=== PATIENT | male | born 1960 | race Caucasian/White ===

== ENCOUNTER 2024-06-03 14:23 | Emergency (ER) | payer OTHER, SELFPAY ==
[2024-06-03 14:26] VITALS: BP 160/81
[2024-06-03 14:52] LABS: % Basophils 0.9 % (0-2); % Eosinophils 1.3 % (0-6); % Immature Granulocytes 0.5 % (0-0.5); % Lymphocytes 10.3 % (20.5-51.1); % Monocytes 11.2 % (1.7-9.3); % Neutrophils 75.8 % (42.2-75.2); Absolute Basophils 0.1 10^3/uL (0-0.2); Absolute Eosinophils 0.1 10^3/uL (0-0.7); Absolute Immature Granulocytes 0.1 10^3/uL (0-0.05); Absolute Lymphocytes 1.1 10^3/uL (1.2-3.4); Absolute Monocytes 1.2 10^3/uL (0.1-0.6); Absolute Neutrophils 8.1 10^3/uL (1.4-6.5); Hematocrit 52.6 % (39.0-52.0); Hemoglobin 18.4 g/dL (13.0-18.0); Mean Corpuscular Hgb 28.5 pg (27.0-31.0); Mean Corpuscular Volume 81.6 fL (80.0-94.0); Nucleated Red Blood Cells % 0 % (-); Platelet Count 358 10^3/uL (130-400); Red Blood Cell Count 6.45 10^6/uL (4.70-6.10); Red Cell Dist. Width 13.2 % (11.5-14.5); White Blood Cell Count 10.7 10^3/uL (4.8-10.8)
[2024-06-03 15:21] LABS: ALT (SGPT) 25 U/L (0-50); AST (SGOT) 28 U/L (17-59); Albumin 4.7 g/dl (3.5-5.0); Alkaline Phosphatase 98 U/L (38-126); Blood Urea Nitrogen 49 mg/dl (9-20); Carbon Dioxide 18 mmol/L (22-30); Chloride 96 mmol/L (98-107); Glucose 198 mg/dl (70-99); Potassium 4.8 mmol/L (3.5-5.1); Sodium 134 mmol/L (135-145); Total Bilirubin 0.8 mg/dl (0.2-1.3); Total Protein 7.8 g/dl (6.3-8.2); eGFR 47.82
[2024-06-03 16:42] VITALS: BP 104/85
[2024-06-03 16:48] VITALS: BMI 22.0
[2024-06-03] MEDS: NSS 1000 IV (16:48)
[2024-06-03] MEDS: ZOFRAN 4 MG IV (16:53)
--- NOTE | 2024-06-03 17:33 | ED.GENMED ---
History of Present Illness
General
Chief Complaint: Dehydration Symptoms
Time Seen by Provider: 06/03/24 16:34
History of Present Illness
History of Present Illness:
64-year-old male presents to the emergency department for evaluation of fatigue, states he began with nausea, vomiting, and diarrhea 2 days ago and since that time has had increasing weakness. Having difficulty tolerating p.o. fluids. He
reportedly had a stroke in March treated at an outside hospital, does not routinely follow-up with primary care physicians. Lastly he reports having chronic but worsening right-sided headaches that come and go and sharp episodes, lasting anywhere
from seconds to minutes. States they occur on almost a daily basis. They are not associated with any vision changes, neck pain, or fevers
Review of Systems
Review of Systems
Allergies reviewed?: Yes
All Other Systems: ROS reviewed and negative except as documented in HPI and ROS
Phy Exam
Physical Exam
Physical Exam:
GEN: Well appearing, NAD, WDWN
HEENT: Oral mucosa moist, no scleral icterus
Cardiac: Tachycardic but regular, no murmurs
Lung: No respiratory distress, no tachypnea
Abdomen: Soft, nontender
MSK: No gross deformity or injuries
Skin: Good color, no pallor or jaundice, no rashes
Neuro: AO x3, moves all extremities freely, Cranial nerves II through XII grossly intact
Psych: Calm, cooperative
Course
Orders/Labs/Results
Orders:
Orders
06/03/24 14:30
Electrocardiogram (*1) Urgent
Reason for Study: Fatigue / Weakness
CT Head W/o Iv Contrast Urgent
Comment: hx cva in march 2024 went to [facility]
Reason For Exam: right side of head pain
06/03/24 14:31
EKG- Treatment ONCE
06/03/24 14:38
Complete Blood Count/With Diff Urgent
Comprehensive Metabolic Panel Urgent
06/03/24 16:48
0.9% Sodium Chloride 1000 ml [Nss] 1,000 ml IV BOLUS
06/03/24 16:50
Ondansetron Injectable [Zofran] 4 mg .ROUTE .STK-MED ONE
06/03/24 16:53
Ondansetron Injectable [Zofran] 4 mg IV NOW STA
06/03/24 17:41
0.9% Sodium Chloride 500 ml [Nss] 500 ml IV BOLUS
Carbamazepine [Tegretol] 200 mg PO NOW STA
Abnormal Lab Results
06/03/24
14:38
RBC 6.45 H 10^6/uL
(4.70-6.10)
Hgb 18.4 H g/dL
(13.0-18.0)
Hct 52.6 H %
(39.0-52.0)
Abs Immat Gran (auto) 0.1 H 10^3/uL
(0-0.05)
Absolute Neuts (auto) 8.1 H 10^3/uL
(1.4-6.5)
Absolute Lymphs (auto) 1.1 L 10^3/uL
(1.2-3.4)
Absolute Monos (auto) 1.2 H 10^3/uL
(0.1-0.6)
Neutrophils % 75.8 H %
(42.2-75.2)
Lymphocytes % 10.3 L %
(20.5-51.1)
Monocytes % 11.2 H %
(1.7-9.3)
Sodium 134 L mmol/L
(135-145)
Chloride 96 L mmol/L
(98-107)
Carbon Dioxide 18 L mmol/L
(22-30)
BUN 49 H mg/dl
(9-20)
Creatinine 1.6 H mg/dL
(0.7-1.3)
Glucose 198 H mg/dl
(70-99)
06/03/24 14:38
06/03/24 14:38
Vital Signs
Initial and Last Documented VS:
Initial Vital Signs
Temp Pulse Resp BP Pulse Ox
98.8 F 125 16 160/81 98
06/03/24 14:26 06/03/24 14:26 06/03/24 14:26 06/03/24 14:26 06/03/24 14:26
Last Documented Vital Signs
Temp Pulse Resp BP Pulse Ox
98.8 F 100 16 122/89 97
06/03/24 14:26 06/03/24 18:19 06/03/24 16:42 06/03/24 18:19 06/03/24 18:19
MDM/Problems Addressed
MDM/Problems Addressed:
Patient's nausea and vomiting is likely self-limited viral syndrome, he has no leukocytosis or abdominal tenderness warranting abdominal imaging at this time. Labs are notable for elevated hemoglobin although baseline is unknown, as well as
suspected ISRRAEL again with no known baseline. This is likely prerenal in the basis of volume loss due to GI illness. Patient's symptoms resolved after treatment with IV fluids. In regards to his headaches head CT was obtained due to the recent CVA
however this was unremarkable. His description of the pain pattern is compatible with trigeminal neuralgia as such we will start him on carbamazepine
*Critical Care Note
Total Time (30-74mins, 75-104mins- exclusive of procedures): Not Applicable
ED Attending Note
-
Portions of this chart may have been created with voice recognition software.� Occasional wrong word or��sound alike� substitutions may have occurred due to the inherent limitations of voice recognition software.
Discharge Plan
Departure
Patient Disposition: Home (Routine Discharge)
Date of Disposition: 06/03/24
Time of Disposition: 18:55
Patient with high blood pressure during this ER visit?: No
Discharge Problem:
Trigeminal neuralgia, Nausea and vomiting
Instructions: Trigeminal neuralgia, Nausea and Vomiting, Adult (DC)
Prescriptions:
New
carbamazepine 200 mg tablet
200 mg PO TID Qty: 60 0RF
ondansetron HCl 4 mg tablet
4 mg PO Q8H PRN (Reason: nausea and vomiting) Qty: 10 0RF
Referrals:
NONE,* [Family Provider] -
Activity Restrictions/Additional Instructions:
[facility]
[address]
[place] [address]
[phone]
Interventions
Interventions:
*Risk Screen - Suicide Last Done: 06/03/24 16:42
*General Assessment Last Done: 06/03/24 16:42
*Neglect/Abuse Screening Last Done: 06/03/24 16:42
ED- Fall Risk Assessment Last Done: 06/03/24 16:42
*ED COVID-19 Vaccine History Last Done: 06/03/24 16:42
*Nursing Disposition Last Done: 06/03/24 19:08
ED- Cardiac Assessment Last Done: 06/03/24 16:42
ED- Neurological Assessment Last Done: 06/03/24 16:42
ED- Pulmonary Assessment Last Done: 06/03/24 16:42
Discharge Date and Time
Discharge Date/Time: 06/03/24 19:08
Print Language: GREEK
[2024-06-03] MEDS: TEGRETOL 200 MG PO (18:15)
[2024-06-03] MEDS: NSS 500 IV (18:16)
[2024-06-03 18:19] VITALS: BP 122/89
== END 2024-06-03 19:08 | disposition home or self-care (01) ==
LOC: EMR 14:23
PROVIDERS: Emergency Medicine; EMERGENCY PHYSICIAN Emergency Medicine
DX: R11.2 Nausea with vomiting, unspecified (principal); G50.0 Trigeminal neuralgia; R51.9 Headache, unspecified; R19.7 Diarrhea, unspecified; Z86.73 Personal history of transient ischemic attack (TIA), and cerebral infarction without residual deficits
CPT/HCPCS: 99284; 96374; 96361; 70450; 80053; 85025; 93005

== ENCOUNTER 2024-06-16 21:05 | Inpatient (IN) | payer OTHER, SELFPAY ==
[2024-06-16] VITALS (10 sets, daily range): BP systolic 93–130; BP diastolic 64–103; BMI 22.1; BMI 21.1
[2024-06-16 14:05] LABS: ALT (SGPT) 43 U/L (0-50); AST (SGOT) 35 U/L (17-59); Albumin 4.2 g/dl (3.5-5.0); Alkaline Phosphatase 119 U/L (38-126); Blood Urea Nitrogen 36 mg/dl (9-20); Calcium 9.6 mg/dl (8.4-10.2); Carbon Dioxide 24 mmol/L (22-30); Chloride 100 mmol/L (98-107); Glucose 194 mg/dl (70-99); Lipase 84 U/L (23-300); Potassium 4.4 mmol/L (3.5-5.1); Sodium 138 mmol/L (135-145); Total Bilirubin 0.6 mg/dl (0.2-1.3); eGFR > 60.00
[2024-06-16 14:28] LABS: % Basophils 0.4 % (0-2); % Eosinophils 0.3 % (0-6); % Immature Granulocytes 0.7 % (0-0.5); % Lymphocytes 4.2 % (20.5-51.1); % Monocytes 5.4 % (1.7-9.3); Absolute Basophils 0.1 10^3/uL (0-0.2); Absolute Eosinophils 0.1 10^3/uL (0-0.7); Absolute Immature Granulocytes 0.3 10^3/uL (0-0.05); Absolute Lymphocytes 1.5 10^3/uL (1.2-3.4); Absolute Monocytes 1.9 10^3/uL (0.1-0.6); Absolute Neutrophils 30.4 10^3/uL (1.4-6.5); Hemoglobin 15.2 g/dL (13.0-18.0); Mean Corp Hgb Conc. 34.5 g/dL (33.0-37.0); Mean Corpuscular Hgb 28.3 pg (27.0-31.0); Mean Corpuscular Volume 81.9 fL (80.0-94.0); Mean Platelet Volume 8.9 fL (7.4-10.4); Nucleated Red Blood Cells % 0 % (-); Platelet Count 330 10^3/uL (130-400); Red Blood Cell Count 5.37 10^6/uL (4.70-6.10); Red Cell Dist. Width 13.2 % (11.5-14.5); White Blood Cell Count 34.2 10^3/uL (4.8-10.8)
[2024-06-16] MEDS: NSS 1000 IV ×2 (14:29→20:59)
[2024-06-16] MEDS: TORADOL 15 MG IV (14:29)
[2024-06-16] MEDS: ZOFRAN 4 MG IV (14:29)
--- NOTE | 2024-06-16 14:58 | ED.GENMED ---
History of Present Illness
General
Chief Complaint: Abdominal Symptoms
Time Seen by Provider: 06/16/24 14:08
History of Present Illness
History of Present Illness:
64-year-old male with history of ulcerative colitis status post colectomy with a pouch presenting to the emergency department for diffuse abdominal pain. Patient reports symptoms since yesterday with associated vomiting, reports green/yellow in
color. Denies any blood in the vomit. Reports diarrhea, which she notes is chronic. Denies fever. Denies chest pain or difficulty breathing. Denies additional surgical history. Denies additional acute medical complaints
Phy Exam
Physical Exam
Physical Exam:
General: Well-appearing, no clinical signs of dehydration, nontoxic and in no acute distress
HEENT: protecting airway
Neck: appears supple
CV: Normal heart rate, regular rhythm, no evidence of cyanosis
Resp: No accessory muscle use, no increased work of breathing
Abd: Mild distention with generalized tenderness to lower abdomen
Extremities: No deformities, no swelling, no erythema
Neuro: alert, no focal neurologic deficit
: deferred
Rectal: deferred
Psych: Normal affect
Skin: Intact
Course
Orders/Labs/Results
Orders:
Orders
06/16/24 Lunch
Clear Liquid
At Your Request: Full Participation
06/16/24 13:35
IV Insert/Care/Rem.- Treatment PRN
06/16/24 13:36
Complete Blood Count/With Diff Urgent
Comprehensive Metabolic Panel Urgent
Lipase Urgent
06/16/24 14:14
Add On- LAB Urgent
Tests Added?: lipase
0.9% Sodium Chloride 1000 ml [Nss] 1,000 ml IV BOLUS
Ketorolac [Toradol] 15 mg IV NOW STA
06/16/24 14:15
CT Abd/pelvis W Iv Cont Urgent
Comment:
Reason For Exam: lower abdominal pain, hx colectomy
06/16/24 14:25
Ondansetron Injectable [Zofran] 4 mg .ROUTE .STK-MED ONE
06/16/24 14:28
Ondansetron Injectable [Zofran] 4 mg IV NOW STA
06/16/24 14:44
Lactic Acid Q4H
Comment: CANCEL 2nd LACTIC ACID IF 1st LACTIC ACID IS LESS THAN 2
Blood Culture Urgent
MELODY Source: Blood/Venous
Specimen Description:
06/16/24 17:25
Urinalysis Reflex To Culture Urgent
Date Specimen was Collected: 06/16/24
Time Specimen was Collected: 17:15
Urine Microscopic Reflex Cult Urgent
06/16/24 18:58
CDIFF [C difficile Antigen & Toxins] Urgent
MELODY Source: Feces/Stool
Specimen Description:
Date Specimen was Collected: 06/16/24
Time Specimen was Collected: 18:56
Stool Culture Urgent
MELODY Source: Feces/Stool
Specimen Description:
Date Specimen was Collected: 06/16/24
Time Specimen was Collected: 18:56
06/16/24 20:00
LevoFLOXacin 500 MG/100 ML [Levaquin] 500 mg in 100 ml IV Q24H
06/16/24 20:06
Records Request [Obtain Records] As Directed
Dates of Information to be Released: [facility] March 2024 Stroke
Type of Information Requested: Entire Record
06/16/24 20:15
0.9% Sodium Chloride 1000 ml [Nss] 1,000 ml IV 100 mls/hr
06/16/24 20:18
Admit/Transfer Patient As Directed
Co-Sign Provider:
Level of Care: Inpatient admission
Assign to:: Medical/Surgical
Physician / Group: Anca Gaona
Diagnosis: Possible Severe Gastroenteritis High White Count
Reason for Hospitalization: Possible Severe Gastroenteritis High White Count hx UC s/p J-pouch Colectomy
Expected length of stay greater than two midnights?: Yes
ELOS- Estimated Length of Stay in days: 2
I certify the patient meets the requirements for IP care: Yes
PRN Pain Medication Management As Directed
May give lesser potent ordered pain med per pt: Yes
preference::
Protocol:: Medication orders for pain may be administered in a
manner that supports deferring to patient preference
when the pt is:
- Requesting an ordered lesser potent pain medication.
Least to most potent pain medications are defined
as: acetaminophen < NSAID < tramadol < opioids
(morphine, oxycodone, hydromorphone).
- Requesting a lesser dose of the same medication IF
ORDERED.
- Requesting a less intrusive route of administration
if both routes are prescribed by the provider (PO <
IV).
06/16/24 20:22
Code Status As Directed
Resuscitation Status: Full Code
06/16/24 20:36
Blood Culture Routine
MELODY Source: Blood/Venous
Specimen Description:
06/16/24 21:00
Flush (0.9% Sodium Chloride) [Flush (Nss)] See Dose Instructions IV PER PROTOCOL
06/16/24 21:36
Acetaminophen [Tylenol] 650 mg PO Q4HPRN PRN
Bisacodyl [Dulcolax] 10 mg RECTAL [id number] PRN
Docusate W/Senna [Senokot-S] 1 tablet PO BIDPRN PRN
Morphine Sulfate 2 mg IV Q4HPRN PRN
Polyethylene Glycol Powder [Miralax] 17 grams PO DAILYPRN PRN
Prochlorperazine [Compazine] 10 mg IV Q6HPRN PRN
06/16/24 21:36
Activity As Directed
Activity Level: With Assistance
Pneumatic Compression Sleeves As Directed
Type: Knee high
Precautions As Directed
Type of Precautions: Other
Comment: Fall precautions
Vital Signs As Directed
Frequency: Per unit guidelines
DX Deep Vein Thrombosis Video Routine
06/16/24 22:00
MetroNIDAZOLE 500 MG/100 ML [Flagyl 500 mg] 100 ml IV Q8H
06/17/24 05:53
Basic Metabolic Panel IN AM
Complete Blood Count/No Diff IN AM
Magnesium IN AM
06/17/24 08:00
Amlodipine [Norvasc] 5 mg PO DAILY
Aspirin Low Dose EC [Aspir Low (Enteric Coated)] 162 mg PO DAILY
Atorvastatin [Lipitor] 40 mg PO DAILY
06/17/24 18:00
Clopidogrel Bisulfate [Plavix] 75 mg PO QPM
06/18/24 06:00
Basic Metabolic Panel IN AM
Complete Blood Count/No Diff IN AM
Magnesium IN AM
06/19/24 06:00
Basic Metabolic Panel IN AM
Complete Blood Count/No Diff IN AM
Magnesium IN AM
06/20/24 06:00
Basic Metabolic Panel IN AM
Complete Blood Count/No Diff IN AM
Magnesium IN AM
06/21/24 06:00
Basic Metabolic Panel IN AM
Complete Blood Count/No Diff IN AM
Magnesium IN AM
06/22/24 06:00
Basic Metabolic Panel IN AM
Complete Blood Count/No Diff IN AM
Magnesium IN AM
06/23/24 06:00
Basic Metabolic Panel IN AM
Complete Blood Count/No Diff IN AM
Magnesium IN AM
Abnormal Lab Results
06/16/24 06/16/24
13:36 17:25
WBC 34.2 H 10^3/uL
(4.8-10.8)
Abs Immat Gran (auto) 0.3 H 10^3/uL
(0-0.05)
Absolute Neuts (auto) 30.4 H 10^3/uL
(1.4-6.5)
Absolute Monos (auto) 1.9 H 10^3/uL
(0.1-0.6)
Immature Gran % 0.7 H %
(0-0.5)
Neutrophils % 89.0 H %
(42.2-75.2)
Lymphocytes % 4.2 L %
(20.5-51.1)
BUN 36 H mg/dl
(9-20)
Glucose 194 H mg/dl
(70-99)
Ur Occult Blood Reflex 4+ A
(Negative)
Urine Bilirubin 1+ A
(Negative)
Leukocyte Esterase Rfl Trace A
(Negative)
Urine RBC 30-40 A /HPF
(0-2)
Urine Albumin (Reflex) 1+ A
(Neg - Trace)
06/16/24 13:36
06/16/24 13:36
Vital Signs
Initial and Last Documented VS:
Initial Vital Signs
Temp Pulse Resp BP Pulse Ox
97.9 F 117 18 107/73 97
06/16/24 12:36 06/16/24 12:36 06/16/24 12:36 06/16/24 12:36 06/16/24 12:36
Last Documented Vital Signs
Temp Pulse Resp BP Pulse Ox
97.8 F 72 17 124/65 97
06/17/24 07:47 06/17/24 08:22 06/17/24 07:47 06/17/24 08:22 06/17/24 09:13
MDM/Problems Addressed
MDM/Problems Addressed:
64-year-old male with history of ulcerative colitis status post colectomy presenting for lower abdominal pain with vomiting. Vital signs are significant for tachycardia.
On exam patient is nontoxic, however slightly uncomfortable secondary to pain with diffuse tenderness to the lower abdomen, slight distention. Concern for possible intra-abdominal pathology/process, particularly given patient surgical history.
Differential considerations include colitis versus obstruction versus urinary tract infection. Will plan for laboratory analysis and CT abdominal imaging. Toradol and Zofran administered for patient's symptoms as well as IV fluids.
14:40 - Patient with markedly elevated white blood cell count. For this reason we will add lactic acid and culture
15:50 -patient pending CT scan with disposition pending CT
*Critical Care Note
Total Time (30-74mins, 75-104mins- exclusive of procedures): Not Applicable
ED Attending Note
-
Portions of this chart may have been created with voice recognition software.� Occasional wrong word or��sound alike� substitutions may have occurred due to the inherent limitations of voice recognition software.
Discharge Plan
Departure
Patient Disposition: Admit
Date of Disposition: 06/16/24
Time of Disposition: 18:15
Presentation/result/management discussed w/ accepting MD/DO: Hospitalist
Discharge Problem:
Bowel obstruction
Interventions
Interventions:
*Risk Screen - Suicide Last Done: 06/16/24 22:29
*Neglect/Abuse Screening Last Done: 06/16/24 19:09
*ED COVID-19 Vaccine History Last Done: 06/16/24 15:41
*Nursing Disposition Last Done: 06/16/24 21:39
WR-Wysueu-Chidxdbtsq Assessment Last Done: 06/16/24 15:41
Discharge Date and Time
Discharge Date/Time: 06/16/24 21:40
[2024-06-16 15:07] LABS: Lactic Acid 1.6 mmol/L (0.7-2.0)
[2024-06-16 17:31] LABS: Urine Albumin 1+ (Neg - Trace); Urine Bilirubin 1+ (Negative); Urine Character Very Cloudy (Clear); Urine Color Amber; Urine Glucose Negative (Negative); Urine Ketone Negative (Negative); Urine Leukocyte Trace (Negative); Urine Nitrite Negative (Negative); Urine Occult Blood 4+ (Negative); Urine Urobilinogen Negative (Neg - 1+)
[2024-06-16 17:40] LABS: Urine Uric Acid Crystals Present
[2024-06-16 17:41] LABS: Urine Hyaline Cast 0-2 /LPF (0-2); Urine White Cell 0-2 /HPF (0-5)
[2024-06-16 17:42] LABS: Urine Mucus Many
[2024-06-16 17:43] LABS: Urine Red Blood Cell 30-40 /HPF (0-2)
--- NOTE | 2024-06-16 18:27 | HPS.HSE ---
Family Physician
-
Family Physician: * NONE
Chief Complaint
-
Abd pain
History of Present Illness
64M UC s/p colectomy J-pouch done at [place] w/ Dr Fleming 2008 hx CVA March 2024 treated at [facility] (stroked '3 times' in March per patient, denies residual symptoms) here with diffuse abd pain 24 hours with associate persistent nausea vomiting
increased stool frequency and abd cramping. Symptoms subsequently improved toradol, zofran and IVF. CT reported concerns for possible developing SBO (doesn't seem to correlate clinically with frequent diarrhea J-pouch output) White count elevation
34.2 afebrile non-toxic appearing no lactic acidosis hemodynamically stable, received 1Liter bolus in ED. Abd tenderness persists but patient otherwise eager to resume eating.
Patient was evaluated here 2 wks ago for nausea/vomiting but no abd tenderness or white count at that time. Patient had associate right sided headache at the time and was diagnosed with trigeminal neuralgia. Discharged with Carbamazepine. Unclear
if still taking. Patient is not currently following a primary care provider.
Medical History
Past Medical History
Past Medical History: Reports Other (as above)
Past Surgical History: Reports Other (as above)
Social History
Tobacco: Non-smoker
Alcohol: None
Drug: Former User
Family History
Family History: Not pertinent (reviewed)
Allergies / Home Medications
Allergies reflects when Allergies were last updated in [employer].
Home Medications with original date entered in [employer]
Allergy/Medication List:
Allergies
Allergy/AdvReac Type Severity Reaction Status Date / Time
No Known Allergies Allergy Verified 06/16/24 12:36
Home Medications
amlodipine 5 mg tablet (Norvasc) 5 mg PO DAILY 06/16/24
aspirin 81 mg tablet,delayed release 162 mg PO DAILY 06/16/24
atorvastatin 40 mg tablet (Lipitor) 40 mg PO DAILY 06/16/24
clopidogrel 75 mg tablet (Plavix) 75 mg PO QPM 06/16/24
ibuprofen 200 mg tablet (Advil) 400 mg PO Q6HPRN PRN mild pain 06/16/24
Review of Systems
-
History Source: Other
A 12 point ROS was completed and negative except as noted: Yes
Constitutional: Reports Other (as below)
Physical Exam
Vital Signs
Vital Signs
Temp Pulse Resp BP Pulse Ox
97.9 F 98 19 122/77 98
06/16/24 12:36 06/16/24 15:45 06/16/24 15:45 06/16/24 15:30 06/16/24 15:45
Physical Exam
General: Other (as below)
Laboratory Results
-
06/16/24 13:36
06/16/24 13:36
Laboratory Results
Lactic Acid 1.6 mmol/L (0.7-2.0) 06/16/24 14:44
Total Bilirubin 0.6 mg/dl (0.2-1.3) 06/16/24 13:36
AST 35 U/L (17-59) 06/16/24 13:36
ALT 43 U/L (0-50) 06/16/24 13:36
Alkaline Phosphatase 119 U/L (38-126) 06/16/24 13:36
Lipase 84 U/L (23-300) 06/16/24 13:36
Impression/Plan
-
ROS
General: Denies fever chills night sweats unexpected weight loss
Neuro: Denies seizure shaking loss of consciousness dizziness vertigo
Psych: denies depression hallucinations confusion manic episodes
Endocrine: Denies polyuria polydipsia polyphagia heat/cold intolerance
HEENT: Denies blindness visual disturbances epistaxis
Pulmonary: denies coughing hemoptysis sneezing sob dyspnea on exertion
Cardiovascular: denies chest pain palpitations leg swelling
Hematology: denies signs symptoms of anemia easy bruising/bleeding
Gastrointestinal: reports nausea vomiting diarrhea (increased J-pouch output frequency) denies hematemesis hematochezia melena
Genito-Urinary: denies retention incontinence dysuria
Musculoskeletal: denies joint pain weakness
Dermatology: denies rash laceration bruising
Physical Exam
General: No pallor, cyanosis, or jaundice.
HEENT: Throat clear. PERRLA Normocephalic atraumatic
NECK: Supple. No JVD Carotid Bruits
RESPIRATORY: Lungs clear to auscultation. No crackles wheezes stridor
CVS: S1, S2 normal. RRR. No murmur, rub or gallop.
ABDOMEN: Soft, tender, bowel sounds present
EXTREMITIES: No peripheral cyanosis or edema.
MANAGER MEDICAID: [id number]. No focal deficits.
IMPRESSION:
64M UC s/p colectomy J-pouch done at [place] w/ Dr Fleming 2008 hx CVA March 2024 treated at [facility] (stroked '3 times' in March per patient, denies residual symptoms) here with diffuse abd pain 24 hours with associate persistent nausea vomiting
increased stool frequency and abd cramping. Symptoms subsequently improved toradol, zofran and IVF. CT reported concerns for possible developing SBO (doesn't seem to correlate clinically with frequent diarrhea J-pouch output) White count elevation
34.2 afebrile non-toxic appearing no lactic acidosis hemodynamically stable, received 1Liter bolus in ED. Abd tenderness persists but patient otherwise eager to resume eating.
Patient was evaluated here 2 wks ago for nausea/vomiting but no abd tenderness or white count at that time. Patient had associate right sided headache at the time and was diagnosed with trigeminal neuralgia. Discharged with Carbamazepine. Unclear
if still taking. Patient is not currently following a primary care provider.
PLAN:
#Abd pain tenderness nausea vomiting Leukocytosis 30s frequent J pouch outputs (patient doesn't consider these to be bowel movements) unclear etiology
#CT suggest early signs SBO but unlikely given issue is frequent output
#Possible gastroenteritis, question possible pouchitis not noted on CT
#UC s/p colectomy J-pouch done at [place] w/ Dr Fleming 2008
med surg admit
CRS and GI consults requested
IVF
trial clear liquid diet for now, switch to NPO if Nausea vomiting re-occurs
empiric abx Levofloxacin Flagyll
Blood Cultures
Stool Cultures
check Cdiff
trend WBC
Tylenol PRN
aniemetic prn Compazine, minimize QT prolonging agents while on Levofloxacin
morphine prn pain
#hx CVA March 2024 treated at [facility]
Records requested
cont home ASA 162 mg and Plavix
avoid excessive NSAID/antiplatelet use (home ibuprofen prn placed on hold)
#Question Trigeminal Neuralgia
currently appears symptom free, unclear if patient has been taking
hold off on restarting carbamazepine and monitor for now.
dvt ppx SCD
Full Code
I spent a total of 80 minutes with the patient or on the floor. More than 50% of this time involved counseling and coordination of care.
[2024-06-16] MEDS: LEVAQUIN 100 IV (21:00)
[2024-06-16] MEDS: FLAGYL 500 MG 100 IV (22:31)
[2024-06-17] MEDS: FLAGYL 500 MG 100 IV (05:29)
[2024-06-17 06:13] LABS: Hematocrit 37.3 % (39.0-52.0); Hemoglobin 12.5 g/dL (13.0-18.0); Mean Corp Hgb Conc. 33.5 g/dL (33.0-37.0); Mean Corpuscular Hgb 28.3 pg (27.0-31.0); Mean Corpuscular Volume 84.4 fL (80.0-94.0); Mean Platelet Volume 9.2 fL (7.4-10.4); Platelet Count 272 10^3/uL (130-400); Red Blood Cell Count 4.42 10^6/uL (4.70-6.10); Red Cell Dist. Width 13.3 % (11.5-14.5)
[2024-06-17 06:42] LABS: Blood Urea Nitrogen 38 mg/dl (9-20); Carbon Dioxide 28 mmol/L (22-30); Chloride 101 mmol/L (98-107); Estimated Creatinine Clearance 79 ml/min; Glucose 146 mg/dl (70-99); Potassium 5.2 mmol/L (3.5-5.1); Sodium 137 mmol/L (135-145); eGFR > 60.00
[2024-06-17 07:47] VITALS: BP 124/65
[2024-06-17] MEDS: NORVASC 5 MG PO (08:22)
[2024-06-17] MEDS: LIPITOR 40 MG PO (08:22)
[2024-06-17] MEDS: ASPIR LOW (ENTERIC COATED) 162 MG PO (08:23)
--- NOTE | 2024-06-17 09:11 | W.PN.HOSP.TC ---
Today's Communication/Plan
-
Advance diet. Plan to discharge today.
Assessment / Plan
Assessment / Plan
Physical exam:
General: Well Developed, Well Nourished and No Apparent Distress
HEENT: Normocephalic, Atraumatic and Moist Mucous Membranes
Respiratory: Clear to Auscultation; Negative Wheezes, Rales or Rhonchi
Cardiac: Regular Rhythm and S1/S2
GI: Soft, Nontender and Nondistended
Musculoskeletal: No Clubbing, No Cyanosis and No Edema
Neuro: Awake, Alert and Oriented
Psych: Calm
A/P:
#Abd pain tenderness nausea vomiting Leukocytosis 30s frequent J pouch outputs (patient doesn't consider these to be bowel movements) unclear etiology
#CT suggest early signs SBO but unlikely given issue is frequent output
#Possible gastroenteritis, question possible pouchitis not noted on CT
#UC s/p colectomy J-pouch done at [place] w/ Dr Fleming 2008
med surg admitted
C. difficile negative
CRS and GI consults requested--> I put both consults on today. I evaluated the patient and agreed to advance diet and discharge home today with antibiotics and close follow-up as outpatient.
Prior to today:
IVF
trial clear liquid diet for now, switch to NPO if Nausea vomiting re-occurs
empiric abx Levofloxacin Flagyll
Blood Cultures
Stool Cultures
check Cdiff
trend WBC
Tylenol PRN
aniemetic prn Compazine, minimize QT prolonging agents while on Levofloxacin
morphine prn pain
#hx CVA March 2024 treated at [place]
Records requested
cont home ASA 162 mg and Plavix
avoid excessive NSAID/antiplatelet use (home ibuprofen prn placed on hold)
#Question Trigeminal Neuralgia
currently appears symptom free, unclear if patient has been taking
hold off on restarting carbamazepine and monitor for now.
dvt ppx SCD
Full Code
Anticipated Discharge: Today
Subjective/Interval History
-
Date of Service: June 17, 2024
Patient denies abdominal pain nausea vomiting today.
Objective Data
-
Labs:
Laboratory Results
06/17/24
05:53
WBC 9.0
Hgb 12.5 L
Hct 37.3 L
Plt Count 272
Sodium 137
Potassium 5.2 H
Chloride 101
Carbon Dioxide 28
BUN 38 H
Creatinine 1.1
Glucose 146 H
Calcium 9.0
Vital Signs:
Vital Signs
Temp Pulse Resp BP Pulse Ox
97.8 F 72 17 124/65 97
06/17/24 07:47 06/17/24 08:22 06/17/24 07:47 06/17/24 08:22 06/17/24 07:47
I&O
06/16/24 06/17/24 06/18/24
06:59 06:59 06:59
Intake Total 1340 / 1340
Balance 1340 / 1340
[2024-06-17] MEDS: NSS 1000 IV (09:22)
--- NOTE | 2024-06-17 09:49 | CON.GI ---
Addendum entered and electronically signed by Radha Oden DO 06/17/24 12:10:
The patient was seen and examined by me independently in collaboration with the nurse practitioner.
Past medical history/social history/medications/allergies/family history reviewed.
Lab data and imaging data reviewed.
Tio Hernández is a 64 y.o. male w/ pmmhx UC s/p colectomy and J-pouch (2008), hx of multiple CVAs (on ASA, Plavix) admitted with nausea, vomiting and diarrhea x1-2 days. At baseline, reports 5-6 loose BMs daily, since his surgery in 2008, performed at
[facility]. Occasional nocturnal awakenings. Currently, having 6-7 BMs daily, so only slightly more than his baseline. He denies any abdominal pain, blood, tenesmus or urgency. Denies any recent antibiotics. He does endorse a hx of c.diff, in 2007, does
not recall the treatment for this. Prior to his surgery, he recalls being on mesalamine and receiving 1 dose of remicade without improvement, then proceeding with colectomy. He has not seen his colorectal surgeon or efficiency engineer (
[place], [facility]) since 2008. He has not had a pouchoscopy. He was unaware that ongoing surveillance was needed, despite his colectomy. At this time, all of his symptoms have resolved and he would like to be discharged home. CT scan on admission
showed concerns for small bowel obstruction, however, after review by colorectal surgery, felt to be much less likely, favoring gastroenteritis. Initial leukocytosis was 34K, lactate 1.6, hemodynamically stable, however, repeat as 9K. On
Levaquin/flagyl.
His chronic diarrhea is suspicious for chronic pouchitis, though, no abnormalities seen on imaging of his pouch. Certainly, he requires pouchoscopy, very overdue for surveillance, as well as to evaluate for pouchitis and cuffitis. Stool studies
sent, c.diff negative, remainder pending. Given no clinical concerns for obstruction, okay for discharge from a GI perspective, to complete a course of antibiotics. Needs outpatient f/u�GI or colorectal for pouchoscopy.
Original Note:
Consultation
-
Date/Time Consultation Requested: 06/17/24829
Date/Time Consultation Performed: 06/17/24939
Requesting Provider: Pancho Valero MD
Performing Provider: YONAS Salter
Reason for Consultation: abnormal inaging, hx UC
Medical History
Chief Complaint / HPI
Chief Complaint: vomiting and abdominal pain
History of Present Illness:
Pt is a 64yo with hx recent CVA, ? new diabetes mellitus, prior colectomy and J pouch for ulcerative colitis 2006 with ER visit 06/03 with headaches and diarrhea with concern for viral syndrome. At that time per ER he was noted without
tenderness on exam and HCT completed with stable results but no abdominal imaging was done. Pt was given IVF with some improvement and discharged. He now returns continued lower abdominal pain and vomiting large volume since Monday . On
admission marked rise in WBC to 34,200 then drop to 9,000. Ct notable for possible developing small bowel obstruction with transition in central abdomen. In reviewing with patient he has history of Ulcerative colitis with prior treatment with
Lialda, another oral medication and 1 dose of IV infusion. He the proceeded to colectomy with J pouch at [place] around 2006 without follow up or any issue since that time.
Pt states since admission he is now feeling better and tolerating small amounts of liquids. He does admit he typically will have 5-6 stools per day and now 7-8 stools per day. He denies dysphagia, GERD, hematemesis, blood or black in stools.
No hx EGD in past and prior colonoscopy last 2006 when surgery completed. Pt denies any recent antibiotics, sick contact or travel.
Past Medical History
Past Medical History: CVA and Other (ulcerative colitis with prior J pouch )
Social History
Tobacco: Vaping
Alcohol: None
Drug: None
Living: Alone
Employment: Employed
Family History
Family History: Other (no family hx UC or crohns )
Allergies / Home Medications
Allergy/AdvReac Type Severity Reaction Status Date / Time
No Known Allergies Allergy Verified 06/16/24 12:36
�Medication �Instructions �Recorded
amlodipine 5 mg tablet (Norvasc) 5 mg PO DAILY Blood Pressure 06/16/24
aspirin 81 mg tablet,delayed 162 mg PO DAILY Blood Clot 06/16/24
release Prevention/Tx
atorvastatin 40 mg tablet (Lipitor) 40 mg PO DAILY High Cholesterol 06/16/24
clopidogrel 75 mg tablet (Plavix) 75 mg PO QPM Blood Clot 06/16/24
Prevention/Tx
ibuprofen 200 mg tablet (Advil) 400 mg PO Q6HPRN PRN mild pain 06/16/24
Review of Systems
-
History Source: Patient
Constitutional: Reports Weight Loss (over last 2 weeks )
EENT: Reports No Symptoms
Respiratory: Reports No Symptoms
Cardiac: Reports No Symptoms
Abdomen/GI: Reports Abdominal Pain, Nausea, Vomiting and Diarrhea
: Reports No Symptoms
Musculoskeletal: Reports No Symptoms
Neurological: Reports Weakness
Endocrine: Reports No Symptoms
Hematologic/Lymphatic: Reports No Symptoms
Vital Signs
Temp Pulse Resp BP Pulse Ox
97.8 F 72 17 124/65 97
06/17/24 07:47 06/17/24 08:22 06/17/24 07:47 06/17/24 08:22 06/17/24 09:13
Physical Exam
Exam
General: Well Developed, Well Nourished and No Apparent Distress
HEENT: Normocephalic and Anicteric
Respiratory: Clear
Cardiac: Regular Rhythm
GI: Soft, Non Tender and Non Distended
Musculoskeletal: No Clubbing and No Cyanosis
Skin: Warm and Dry
Neuro: Awake, Alert and AO x 3
Psych: Calm
Results
WBC 9.0 10^3/uL (4.8-10.8) 06/17/24 05:53
Hgb 12.5 g/dL (13.0-18.0) L 06/17/24 05:53
Hct 37.3 % (39.0-52.0) L 06/17/24 05:53
MCV 84.4 fL (80.0-94.0) 06/17/24 05:53
Plt Count 272 10^3/uL (130-400) 06/17/24 05:53
Absolute Neuts (auto) 30.4 10^3/uL (1.4-6.5) H 06/16/24 13:36
Sodium 137 mmol/L (135-145) 06/17/24 05:53
Potassium 5.2 mmol/L (3.5-5.1) H 06/17/24 05:53
Chloride 101 mmol/L (98-107) 06/17/24 05:53
Carbon Dioxide 28 mmol/L (22-30) 06/17/24 05:53
BUN 38 mg/dl (9-20) H 06/17/24 05:53
Creatinine 1.1 mg/dL (0.7-1.3) 06/17/24 05:53
Calcium 9.0 mg/dl (8.4-10.2) 06/17/24 05:53
Total Bilirubin 0.6 mg/dl (0.2-1.3) 06/16/24 13:36
AST 35 U/L (17-59) 06/16/24 13:36
ALT 43 U/L (0-50) 06/16/24 13:36
Alkaline Phosphatase 119 U/L (38-126) 06/16/24 13:36
Lipase 84 U/L (23-300) 06/16/24 13:36
Diagnostic Image Results:
06/16/24 CT Abd/pelvis W Iv Cont
1. Findings suggesting developing small bowel obstruction with possible transition point in the central abdomen.
06/03/24 CT head without
No acute intracranial hemorrhage.
Multifocal encephalomalacia, most pronounced along the right frontoparietal region. There are additional scattered areas of small hypodensities within the white matter of the bilateral cerebral hemispheres, most pronounced within the right centrum
semiovale, which may be sequelae of chronic small vessel ischemic disease. If there is a high clinical suspicion for acute ischemia an MRI may be considered for further evaluation.
Prior GI Procedures:
EGD: none
Colonoscopy: last 2006
Assessment / Plan
-
Pt is a 64yo with hx recent CVA, ? new diabetes mellitus, prior colectomy and J pouch for ulcerative colitis 2006 with ER visit 06/03 with headaches and diarrhea with concern for viral syndrome. At that time per ER he was noted without
tenderness on exam and HCT completed with stable results but no abdominal imaging was done. Pt was given IVF with some improvement and discharged. He now returns continued lower abdominal pain and vomiting large volume since Monday . On
admission marked rise in WBC to 34,200 then drop to 9,000. Ct notable for possible developing small bowel obstruction with transition in central abdomen. In reviewing with patient he has history of Ulcerative colitis with prior treatment with
Lialda, another oral medication and 1 dose of IV infusion. He the proceeded to colectomy with J pouch at [place] around 2006 without follow up or any issue since that time. He is now feeling better since admission. He does admit he typically
will have 5-6 stools per day and now 7-8 stools per day. Pt denies any recent antibiotics, sick contact or travel.
-nausea/vomiting/diarrhea/abdominal pain
-Ct with concern for developing SB obstruction
-mild increased frequency of stools
-hx UC with Jpouch
-leukocytosis
-CVA on Plavix and ASA
-? new DM
PLAN:
etiology of symptoms related to gastroenteritis, vs SBO vs pouchitis in differential vs other
c-diff neg other cx pending
WBC's improved
cont abx currently on Levaquin and Flagyl
pt tolerating clears advancing full liquid
I reviewed with Katiuska from colorectal surgery
if continued symptoms consider SB imaging and flex with exam of J pouch - if improving can be outpatient
reviewed with patient need for GI follow up Op -left contact information on chart for [place] vs Pt considering [facility] follow up with Keisha Ortiz who has seen patient in past
discussed NSAID avoidance but cont ASA with hx CVA
-
-
Thank you for consultation and allowing me to participate in the patient's care. Please call the service control operator GI physician during the after hours with any questions or concerns.
--- NOTE | 2024-06-17 10:36 | CON.CRS ---
Consultation
-
Date/Time Consultation Requested: 06/16/2024, 18:27
Date/Time Consultation Performed: 06/17/2024, 08:40
Requesting Provider: Anca Friedman MD
Performing Provider: Lele Mcelroy MD
Reason for Consultation: Possible gastroenteritis
Medical History
-
Chief Complaint: nausea, diarrhea
History of Present Illness:
64-year-old male, with a history of a colectomy and J-pouch done at [place] in 2008 and history of multiple CVAs, presents to [facility] complaining of 24 hours of abdominal pain, nausea, vomiting, and loose stools. The patient states
normally his bowel movements are about 3 times a day ever since he had his J-pouch created, however over the past 24 hours he has been having a bowel movement about every 20 minutes. He also describes some nausea and vomiting as well. He currently
has no nausea and has not vomited for a day. He is hungry. His abdominal pain that was present yesterday has since resolved. He has not noticed that he has been passing gas.
On arrival to the ER his WBC was 34.2. Today it is 9.0. He had been started on Levaquin and Flagyl. CT of the abdomen and pelvis shows suggests Jin of's developing small bowel obstruction with possible transition point in the central abdomen. We
have been consulted for further surgical opinion.
Past Medical History
Past Medical History: Other (J-pouch done at [place] w/ Dr Fleming, 2008 hx CVA March 2024 treated at [place])
Past Surgical History: Bowel Resection (J-pouch 2008)
Social History
Tobacco: Non-Smoker
Alcohol: None
Drug: Former User
Family History
Family History: Reviewed & Not Pertinent
Allergies / Home Medications
Allergy/AdvReac Type Severity Reaction Status Date / Time
No Known Allergies Allergy Verified 06/16/24 12:36
�Medication �Instructions �Recorded �Confirmed �Type
amlodipine 5 mg tablet (Norvasc) 5 mg PO DAILY Blood Pressure 06/16/24 06/16/24 History
aspirin 81 mg tablet,delayed 162 mg PO DAILY Blood Clot 06/16/24 06/16/24 History
release Prevention/Tx
atorvastatin 40 mg tablet (Lipitor) 40 mg PO DAILY High Cholesterol 06/16/24 06/16/24 History
clopidogrel 75 mg tablet (Plavix) 75 mg PO QPM Blood Clot 06/16/24 06/16/24 History
Prevention/Tx
ibuprofen 200 mg tablet (Advil) 400 mg PO Q6HPRN PRN mild pain 06/16/24 06/16/24 History
Review of Systems
-
History Source: Patient
Abdomen/GI: Abdominal Pain, Nausea and Diarrhea
A 10 point review of systems was completed, and was negative except as per HPI.
Physical Exam
Vital Signs
Temp 97.8 F 06/17/24 07:47
Pulse 72 06/17/24 08:22
Resp Rate 17 06/17/24 07:47
Blood pressure 124/65 06/17/24 08:22
SaO2 97 06/17/24 09:13
06/16/24 06/17/24 06/18/24
06:59 06:59 06:59
Actual Weight 82.611 kg
Body Mass Index (BMI) 21.1
Lab Results / Allergies
06/17/24 05:53
06/17/24 05:53
WBC 9.0 10^3/uL (4.8-10.8) 06/17/24 05:53
Hgb 12.5 g/dL (13.0-18.0) L 06/17/24 05:53
Hct 37.3 % (39.0-52.0) L 06/17/24 05:53
Plt Count 272 10^3/uL (130-400) 06/17/24 05:53
Abs Immat Gran (auto) 0.3 10^3/uL (0-0.05) H 06/16/24 13:36
Neutrophils % 89.0 % (42.2-75.2) H 06/16/24 13:36
Allergy/AdvReac Type Severity Reaction Status Date / Time
No Known Allergies Allergy Verified 06/16/24 12:36
Physical Exam
General: Well Developed, Well Nourished and No Apparent Distress
GI: Soft, Non Tender and Non Distended
Skin: Warm and Dry
Neuro: AO x 3
Psych: Calm
Data Reviewed
-
CT Scan: Image Personally Visualized and interpreted, Report Reviewed by me and Discussed with Patient
Labs: Labs Reviewed by me, Discussed with Physician and Discussed with Patient
Old Records: Reviewed
Assessment / Plan
-
Assessment: 64 yo male with a history of J pouch in 2008, presents to the ER with nausea/vomiting, abdominal pain, and diarrhea, found to have ? developing small bowel obstruction with possible transition point in the central abdomen
Plan:
CT A/P examined with Dr. Mcelroy. Pouch itself shows no proctitis. This appears more of a gastroenteritis picture. There is no surgery required at this time. Recommend following up with his surgeon as an outpatient, as he has not had a scope since his
J pouch was created. Okay to slowly advance diet to regular. If tolerates, okay for discharge from our perspective. Stool cultures pending.
--- NOTE | 2024-06-17 10:53 | CM ---
CM met with pt bedside
He resides alone in a 2SH with 2STE
Full flight to second floor
Pt is independent with his ADLs- denies use of DMEs
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
No financial insecurities
PCP- none, not interested in setting one up, prefers urgent care
Rx- [facility]
Brother/Christopher is primary contact
No POA- declined advanced directive info
Discharge Disposition- anticipate home no needs, brother will transport home
--- NOTE | 2024-06-17 12:38 | W.DCSUMMARY ---
Discharge Summary
Discharge Data
Date of Admission: 06/16/24
Date of Discharge: 06/17/24
-
Pending Results: No
Hospital Course
Patient is 64 years old male with history of ulcerative colitis status post colectomy and J-pouch back in 2008, CVA, came into the hospital with abdominal pain, nausea, vomiting, diarrhea, and leukocytosis. CT scan of the abdomen suggesting small
bowel obstruction. GI and surgery were consulted. He was started on IV antibiotics and clear liquid diet. C Diff stools was negative. Colorectal surgery was okay to advance diet and they did not see any concerning pathology to change the pouch
seen on CT. GI felt there was a suspicion for chronic pouchitis despite the absence of images and they do recommend outpatient evaluation by themselves or by colorectal surgery for close follow-up. GI also agrees with advancing diet and continue
outpatient course of antibiotics. His WBC went from 34,000 down to 9,000. He improved sooner than expected. He has been afebrile. He has been able to tolerate low residue diet without any problems. He is eager to go home today. He is going to
be discharged in relatively stable condition today.
Discharge duration: 35 minutes
Discharge Plan
-
Patient Disposition: Home (Routine Discharge)
Discharge Diagnosis/Procedures: Acute gastroenteritis. Acute pouchitis. Possible small bowel obstruction.
Diet: Low Residue
Blood Work: Please PCP to order CBC, BMP within 1 week
Referrals:
Primary care, provider [Other] (See less than 1 week)
Radha Oden DO [Active] - (follow up with Dr. Odne vs Keisha vasques at [place] for follow of GI care )
Lele Mcelroy MD [Active] - in two to four weeks
Prescriptions:
New
metronidazole 500 mg Tablet
500 mg PO TID 10 Days Qty: 30 0RF
levofloxacin 500 mg Tablet
500 mg PO DAILY 10 Days Qty: 10 0RF
Continued
atorvastatin [Lipitor] 40 mg Tablet
40 mg PO DAILY
clopidogrel [Plavix] 75 mg Tablet
75 mg PO QPM
amlodipine [Norvasc] 5 mg Tablet
5 mg PO DAILY
aspirin 81 mg Tablet,Delayed Release (Dr/Ec)
162 mg PO DAILY
Discontinued
ibuprofen [Advil] 200 mg Tablet
400 mg PO Q6HPRN PRN (Reason: mild pain)
Discharge Orders:
Discharge Patient (As Directed); Ordered 06/17/24
Ordered By: Pancho Valero
Discharge Date and Time
Discharge Date/Time: 06/17/24 16:45
Print Language: KHMER
[2024-06-17] MEDS: LEVAQUIN 500 MG PO (13:18)
[2024-06-17 14:27] VITALS: BMI 21.1
[2024-06-17] MEDS: FLAGYL 500 MG PO (15:22)
[2024-06-17 15:33] VITALS: BP 107/60
[2024-06-18 00:02] LABS: Hepatitis C Antibody Negative (Negative)
== END 2024-06-17 16:45 | disposition home or self-care (01) | DRG 389 ==
LOC: 3 WEST ACU 21:05
PROVIDERS: ADMITTING PHYSICIAN Internal Medicine; ATTENDING PHYSICIAN Hospitalist; CONSULT PHYSICIAN Internal Medicine; CONSULT PHYSICIAN Surgery; EMERGENCY PHYSICIAN Student in an Organized Health Care Education/Training Program
DX: K56.609 Unspecified intestinal obstruction, unspecified as to partial versus complete obstruction (principal); K91.850 Pouchitis; G50.0 Trigeminal neuralgia; E11.9 Type 2 diabetes mellitus without complications; Z90.49 Acquired absence of other specified parts of digestive tract; Z86.73 Personal history of transient ischemic attack (TIA), and cerebral infarction without residual deficits; Z79.82 Long term (current) use of aspirin
CPT/HCPCS: 51798; 74177; 80048; 80053; 81003; 81015; 83605; 83690; 83735; 85025; 85027; 86803; 87040; 87045; 87046; 87324; 87427; 87449; 96361; 96374; 96375; 99285; Q9967